=== PATIENT | male | born 1995 | race Caucasian/White ===

== ENCOUNTER 2016-05-26 21:38 | Emergency (ER) | payer OTHER ==
[2016-05-26 21:52] VITALS: BP 129/75; PULSE 79; TEMP 98.2; BMI 32.4
--- NOTE | 2016-05-26 22:16 | PDOC ---
History of Present Illness - General Chief Complaint: Respiratory Stated Complaint: HURTS WHEN BREATHING/CHEST TIGHT Time Seen by Provider: 05/26/16 22:09 History Source: Patient - History of Present Illness Timing/Duration: reports: other Associated Symptoms: reports: chest pain/soreness, cough. denies: fever/chills , nasal congestion, nasal drainage, shortness of breath, sore throat, wheezing Past History - Past Medical History Allergies/Adverse Reactions: Allergies Allergy/AdvReac Type Severity Reaction Status Date / Time No Known Allergies Allergy Verified 05/26/16 21:47 Home Medications: Ambulatory Orders NK [No Known Home Medication] 05/26/16 Other medical history: denies - Immunization History Immunization Up to Date: Yes - Psycho/Social/Smoking Cessation Hx Anxiety: No Suicidal Ideation: No Smoking Status: No Smoking History: Never smoked Have you smoked in the past 12 months: No Number of Cigarettes Smoked Daily: 0 Hx Alcohol Use: Yes (TWICE A WEEK) Drug/Substance Use Hx: No Substance Use Type: None Respiratory Specific PMHX - Complaint Specific PMHX Angina: No Review of Systems - Review of Systems Constitutional: No: Chills, Fever Respiratory: Yes: Cough. No: Shortness of Breath, Wheezing *Physical Exam - Vital Signs Last Vital Signs Temp Pulse Resp BP Pulse Ox 98.2 F 79 18 129/75 98 05/26/16 21:47 05/26/16 21:47 05/26/16 21:47 05/26/16 21:47 05/26/16 21:47 - Physical Exam General Appearance: Yes: Appropriately Dressed. No: Apparent Distress HEENT: positive: Normal Voice Neck: positive: Supple. negative: Lymphadenopathy (R), Lymphadenopathy (L) Respiratory/Chest: positive: Lungs Clear, Normal Breath Sounds. negative: Respiratory Distress Cardiovascular: positive: Regular Rate, S1, S2 Integumentary: positive: Dry, Warm Neurologic: positive: Fully Oriented, Alert, Normal Mood/Affect Medical Decision Making - Medical Decision Making 05/26/16 22:15 20-year-old male, no significant history, non-smoker, presenting with non- productive cough with pruritic chest pain x several days. No hemoptysis, shortness of breath, wheezing, fever or chills. Patient well-appearing and stable in ED with clear chest lungs. Most likely viral. DC with symptomatic treatment. *DC/Admit/Observation/Transfer Diagnosis at time of Disposition: URI (upper respiratory infection) Qualifiers: URI type: unspecified viral URI Qualified Code(s): J06.9 - Acute upper respiratory infection, unspecified; B97.89 - Other viral agents as the cause of diseases classified elsewhere - Discharge Dispostion Disposition: HOME Condition at time of disposition: Good - Patient Instructions Printed Discharge Instructions: DI for Viral Upper Respiratory Infection -- Adult
== END 2016-05-26 22:21 | disposition home or self-care (01) ==
LOC: JERFT 21:38 → JER 21:38 → JERFT 22:21
DX: J06.9 Acute upper respiratory infection, unspecified (principal); B97.89 Other viral agents as the cause of diseases classified elsewhere
CPT/HCPCS: 99281-25

== ENCOUNTER 2016-07-09 18:51 | Emergency (ER) | payer OTHER ==
--- NOTE | 2016-07-09 18:59 | PDOC ---
Rapid Medical Evaluation Time Seen by Provider: 07/09/16 18:57 Medical Evaluation: Allergies Allergy/AdvReac Type Severity Reaction Status Date / Time No Known Allergies Allergy Verified 05/26/16 21:47 07/09/16 18:57 20 yo M presents c/o cough x2-3 months. Denies cp, sob. No fever. cxr ordered
[2016-07-09 19:00] VITALS: BP 135/68; PULSE 100; TEMP 98.4; BMI 32.5
--- NOTE | 2016-07-09 19:38 | PDOC ---
History of Present Illness - General Chief Complaint: Cold Symptoms Stated Complaint: RESPIRATORY Time Seen by Provider: 07/09/16 18:57 History Source: Patient Exam Limitations: No Limitations - History of Present Illness Initial Comments: 07/09/16 19:38 CHIEF COMPLAINT: Cough HISTORY OF PRESENT ILLNESS: This is an otherwise healthy 20 year old male who presents for evaluation of 3 months of cough. He reports the cough is nagging, non-productive, and seems to be worse at night and with laying flat. He denies fevers/chills, weight loss, night sweats, and hemoptysis. He occasionally feels short of breath when coughing. His PCP has prescribed him several medications over the past few months (he is unable to recall which ones) with no effect. Vital signs on arrival are notable for pulse of 100. REVIEW OF SYSTEMS: GENERAL/CONSTITUTIONAL: No fever or chills. No weakness. No weight change. HEAD, EYES, EARS, NOSE AND THROAT: No change in vision. No ear pain or discharge. No sore throat. CARDIOVASCULAR: No chest pain or palpitations. RESPIRATORY: See HPI. GASTROINTESTINAL: No nausea, vomiting, diarrhea or constipation. GENITOURINARY: No dysuria, frequency, or change in urination. MUSCULOSKELETAL: No joint or muscle swelling or pain. No neck or back pain. SKIN: No rash or easy bruising. NEUROLOGIC: No headache, vertigo, loss of consciousness, or loss of sensation. PSYCHIATRIC: No depression or anxiety. ENDOCRINE: No increased thirst. No abnormal weight change. HEMATOLOGIC/LYMPHATIC: No anemia, easy bleeding, or history of blood clots. ALLERGIC/IMMUNOLOGIC: No hives or skin allergy. No latex allergy. PHYSICAL EXAM: GENERAL: The patient is awake, alert, and fully oriented, in no acute distress. HEAD: Normal with no signs of trauma. ENT: Tonsils 2+ and erythematous. Pupils equal, round and reactive to light, extraocular movements intact, sclera anicteric, conjunctiva clear. Neck supple. LUNGS: Clear to auscultation bilaterally. Normal excursion. No respiratory distress or use of accessory muscles. CV: RRR, S1/S2, no MRG. Cap refill < 2 sec. ABDOMEN: Soft, non-distended, non-tender. EXTREMITIES: Normal range of motion, no edema. NEUROLOGICAL: Normal speech, normal gait. CN II-XII grossly intact. PSYCH: Normal mood, normal affect. SKIN: Warm, dry, normal turgor, no rashes or lesions noted. Past History - Past Medical History Allergies/Adverse Reactions: Allergies Allergy/AdvReac Type Severity Reaction Status Date / Time No Known Allergies Allergy Verified 07/09/16 18:59 Home Medications: Ambulatory Orders Azithromycin [Zithromax 250mg Tablets -] 250 mg PO UTDICT #6 tab 07/09/16 Prednisone [Deltasone -] 40 mg PO DAILY #10 tablet 07/09/16 Promethazine/Phenyleph/Codeine [Phenergan VC+Codeine Syrup] 5 ml PO QID PRN #50 ml MDD 20 07/09/16 - Immunization History Immunization Up to Date: Yes - Psycho/Social/Smoking Cessation Hx Anxiety: No Suicidal Ideation: No Smoking Status: No Smoking History: Never smoked Have you smoked in the past 12 months: No Number of Cigarettes Smoked Daily: 0 Information on smoking cessation initiated: No Hx Alcohol Use: Yes (TWICE A WEEK) Drug/Substance Use Hx: No Substance Use Type: None *Physical Exam - Vital Signs Last Vital Signs Temp Pulse Resp BP Pulse Ox 98.4 F 100 H 18 135/68 98 07/09/16 18:57 07/09/16 18:57 07/09/16 18:57 07/09/16 18:57 07/09/16 18:57 Medical Decision Making - Medical Decision Making 07/09/16 20:30 A/P: 20 year old male with 3 months of cough. -Mild tonsillar swelling, erythema - rapid strep is negative -CXR wet read: no infiltrate -Trial of prednisone, azithromycin, Phergan VC -Pulmonology referral *DC/Admit/Observation/Transfer Diagnosis at time of Disposition: Cough - Discharge Dispostion Disposition: HOME Condition at time of disposition: Stable Admit: No - Prescriptions Prescriptions: Prednisone [Deltasone -] 40 mg PO DAILY #10 tablet Promethazine/Phenyleph/Codeine [Phenergan VC+Codeine Syrup] 5 ml PO QID PRN #50 ml MDD 20 PRN Reason: Cough Azithromycin [Zithromax 250mg Tablets -] 250 mg PO UTDICT #6 tab - Referrals Referrals: Akhil Jamil MD [Staff Physician] - 1 week (Pulmonlogy) - Patient Instructions Printed Discharge Instructions: DI for Cough -- Adult Additional Instructions: You were seen today for a cough that has lasted for several months. Your chest xray is normal. Take prednisone, azithromycin, and cough syrup as prescribed for bronchitis. Follow up with the head of product (referral enclosed) for pulmonary function testing and further evaluation. Return here for difficulty breathing or any other concerning symptoms.
== END 2016-07-09 20:51 | disposition home or self-care (01) ==
LOC: JERFT 18:51
DX: R05 Cough (principal)
CPT/HCPCS: 71020-TC; 87070; 87430; 99281-25

== ENCOUNTER 2016-08-30 16:18 | Emergency (ER) | payer OTHER ==
[2016-08-30 16:24] VITALS: BP 125/86; PULSE 81; TEMP 98.5; BMI 33.5
--- NOTE | 2016-08-30 17:03 | PDOC ---
History of Present Illness - General Chief Complaint: Respiratory Stated Complaint: BURNING SENSATION TO CHEST/BODY SHAKING Time Seen by Provider: 08/30/16 16:47 History Source: Patient Exam Limitations: No Limitations - History of Present Illness Initial Comments: 08/30/16 16:58 20-year-old male presents to the ED with feeling generalized uneasiness, burning in his epigastric area associated with jitteriness upon awakening this morning. Patient states was out last night where he consumed alcohol, tobacco, and marijuana that he normally does not use. Patient states is dealing with girls stress and decided to go out and also has not been eating well over the past week but denies dehydration. Patient currently denies suicidal or homicidal ideation and denies psychiatric history. Timing/Duration: changing over time Severity: mild Associated Symptoms: reports: other Past History - Past Medical History Allergies/Adverse Reactions: Allergies Allergy/AdvReac Type Severity Reaction Status Date / Time No Known Allergies Allergy Verified 08/30/16 16:23 Home Medications: Ambulatory Orders Azithromycin [Zithromax 250mg Tablets -] 250 mg PO UTDICT #6 tab 07/09/16 Prednisone [Deltasone -] 40 mg PO DAILY #10 tablet 07/09/16 Promethazine/Phenyleph/Codeine [Phenergan VC+Codeine Syrup] 5 ml PO QID PRN #50 ml MDD 20 07/09/16 Other medical history: denies - Immunization History Td Vaccination: Yes Immunization Up to Date: Yes - Psycho/Social/Smoking Cessation Hx Anxiety: No Suicidal Ideation: No Smoking Status: No Smoking History: Never smoked Have you smoked in the past 12 months: No Number of Cigarettes Smoked Daily: 0 Information on smoking cessation initiated: Yes 'Breaking Loose' booklet given: 08/30/16 Hx Alcohol Use: Yes (occasional) Drug/Substance Use Hx: Yes (marijuana) Substance Use Type: Alcohol, Marijuana Patient Lives Alone: No Lives with/in: parents Review of Systems - Review of Systems Able to Perform ROS?: Yes Constitutional: Yes: Loss of Appetite HEENTM: No: Symptoms Reported Respiratory: No: Symptoms reported Cardiac (ROS): Yes: Chest Tightness ABD/GI: Yes: Poor Appetite, Indigestion. No: Poor Fluid Intake Integumentary: No: Symptoms Reported Psychiatric: Yes: Anxiety, Stressors, Change in Appetite *Physical Exam - Vital Signs Last Vital Signs Temp Pulse Resp BP Pulse Ox 98.5 F 81 18 125/86 99 08/30/16 16:21 08/30/16 16:21 08/30/16 16:21 08/30/16 16:21 08/30/16 16:21 - Physical Exam General Appearance: Yes: Nourished, Appropriately Dressed. No: Apparent Distress HEENT: positive: EOMI, GORDO, TMs Normal, Pharynx Normal. negative: Pale Conjunctivae Neck: positive: Normal Thyroid, Supple Respiratory/Chest: positive: Lungs Clear, Normal Breath Sounds. negative: Respiratory Distress, Accessory Muscle Use Cardiovascular: positive: Regular Rhythm, Regular Rate. negative: Murmur Gastrointestinal/Abdominal: positive: Soft. negative: Tenderness Extremity: positive: Normal Capillary Refill Integumentary: positive: Normal Color, Warm, Moist Neurologic: positive: Normal Mood/Affect (good eye contact and normal body language), Motor Strength 5/5 Heart Score/ECG Review - History History: Highly suspicious - ECG Intrepretation Rhythm: Regular Rhythm (rate 87 and normal sinus) Medical Decision Making - Medical Decision Making 08/30/16 17:02 Patient with jitteriness, indigestion after consuming alcohol hookah, and marijuana. Patient with normal EKG and normal clinical exam. Sprain to patient to eat well- balanced meals and to avoid the above. *DC/Admit/Observation/Transfer Diagnosis at time of Disposition: Drug side effects - Discharge Dispostion Disposition: HOME Condition at time of disposition: Good - Referrals Referrals: Herrera Goldsmith MD [Primary Care Provider] - - Patient Instructions Printed Discharge Instructions: Indigestion Additional Instructions: I recommend soft bland food for the next 24 hours. Avoid caffeinated acidic or greasy food.
--- NOTE | 2016-09-03 08:23 | EKG ---
Test Reason : Blood Pressure : / mmHG Vent. Rate : 087 BPM Atrial Rate : 087 BPM P-R Int : 132 ms QRS Dur : 082 ms QT Int : 336 ms P-R-T Axes : 047 039 -07 degrees QTc Int : 404 ms NORMAL SINUS RHYTHM NONSPECIFIC T WAVE ABNORMALITY ABNORMAL ECG WHEN COMPARED WITH ECG OF 03-DEC-2011 01:09, NO SIGNIFICANT CHANGE WAS FOUND Confirmed by GILBERTO ZAMORA MD ([id number]) on 09/03/2016 8:23:08 AM Referred By: Confirmed By:GILBERTO ZAMORA MD
== END 2016-08-30 17:07 | disposition home or self-care (01) ==
LOC: JERFT 16:18
DX: T40.7X1A Poisoning by cannabis (derivatives), accidental (unintentional), initial encounter (principal); T51.8X1A Toxic effect of other alcohols, accidental (unintentional), initial encounter; G25.1 Drug-induced tremor; Y92.89 Other specified places as the place of occurrence of the external cause
CPT/HCPCS: 93005; 93010; 99281-25

== ENCOUNTER 2017-04-18 00:09 | Emergency (ER) | payer OTHER ==
[2017-04-18 00:32] VITALS: BP 120/89; PULSE 94; TEMP 98.1; BMI 34.3
--- NOTE | 2017-04-18 00:37 | PDOC ---
History of Present Illness - General Chief Complaint: Injury Stated Complaint: FINGER INJURY Time Seen by Provider: 04/18/17 00:29 History Source: Patient Exam Limitations: No Limitations - History of Present Illness Initial Comments: 04/18/17 00:52 21-year-old male who is right hand dominant presents to the emergency department complaining of pain to the distal right index finger after slamming his car door into his finger. Pain is described as 6/10 throbbing constant discomfort. The pain is alleviated minimally with ice and exacerbated on touch. Patient denies any other injuries/complaints. Occurred: reports: just prior to arrival Past History - Past Medical History Allergies/Adverse Reactions: Allergies Allergy/AdvReac Type Severity Reaction Status Date / Time No Known Allergies Allergy Verified 04/18/17 00:28 Home Medications: Ambulatory Orders Azithromycin [Zithromax 250mg Tablets -] 250 mg PO UTDICT #6 tab 07/09/16 Prednisone [Deltasone -] 40 mg PO DAILY #10 tablet 07/09/16 Promethazine/Phenyleph/Codeine [Phenergan VC+Codeine Syrup] 5 ml PO QID PRN #50 ml MDD 20 07/09/16 COPD: No Other medical history: denies - Immunization History Td Vaccination: Yes Immunization Up to Date: Yes - Suicide/Smoking/Psychosocial Hx Smoking Status: No Smoking History: Never smoked Have you smoked in the past 12 months: No Number of Cigarettes Smoked Daily: 0 'Breaking Loose' booklet given: 08/30/16 Hx Alcohol Use: No Drug/Substance Use Hx: No Substance Use Type: Alcohol, Marijuana Review of Systems - Review of Systems Able to Perform ROS?: Yes Comments:: 04/18/17 00:53 Right 2nd digit +pain/throbbing neg numbness/tingling sensation Is the patient limited Ivorian proficient: No *Physical Exam - Vital Signs Last Vital Signs Temp Pulse Resp BP Pulse Ox 98.1 F 94 H 18 120/89 99 04/18/17 00:25 04/18/17 00:25 04/18/17 00:25 04/18/17 00:25 04/18/17 00:25 - Physical Exam Comments: 04/18/17 00:53 Right 2nd digit F.R.O.M>/pain 2 point sensation intact cap refill <2sec 40% prox subungual hematoma ED Treatment Course - RADIOLOGY Radiograph Interpretation: 04/18/17 00:56 Xray right 2nd digit; neg fx/dislocations Progress Note - Progress Note Progress Note: Right 2nd digit nail; trephination *DC/Admit/Observation/Transfer Diagnosis at time of Disposition: Hematoma, subungual, finger, right Qualifiers: Encounter type: initial encounter Qualified Code(s): S60.10XA - Contusion of unspecified finger with damage to nail, initial encounter - Discharge Dispostion Disposition: HOME Condition at time of disposition: Stable Admit: No - Referrals Referrals: Herrera Goldsmith MD [Primary Care Provider] - - Patient Instructions Printed Discharge Instructions: DI for Subungual Hematoma Additional Instructions: Ice; 20 mins on alternating with 20 mins off for 48 hours while awake Tylenol or Motrin as needed for pain Follow up with your physician/ or Dr. Eleno Serrano REturn to the ER for severe/persistent/worsening symptoms - Post Discharge Activity
[2017-04-18] MEDS ORDERED: LIDOCAINE HCL 1%, 10 MG/ML (20ML VIAL) ONE (01:55)
== END 2017-04-18 02:45 | disposition home or self-care (01) ==
LOC: JER 00:09
PROC: 0H9QXZZ Drainage of Finger Nail, External Approach (ICD-10-PCS; principal; 2017-04-18)
DX: S60.121A Contusion of right index finger with damage to nail, initial encounter (principal); V48.4XXA Person boarding or alighting a car injured in noncollision transport accident, initial encounter; Y92.410 Unspecified street and highway as the place of occurrence of the external cause; Y93.89 Activity, other specified; Y99.8 Other external cause status
CPT/HCPCS: 13132; 73140-TC-RT; 99281-25

== ENCOUNTER 2017-06-08 16:41 | Emergency (ER) | payer OTHER ==
[2017-06-08 16:51] VITALS: BP 116/70; PULSE 109; TEMP 99.1; BMI 36.8
--- NOTE | 2017-06-08 16:54 | PDOC ---
Rapid Medical Evaluation Chief Complaint: Cold Symptoms Time Seen by Provider: 06/08/17 16:50 Medical Evaluation: Allergies Allergy/AdvReac Type Severity Reaction Status Date / Time No Known Allergies Allergy Verified 06/08/17 16:48 06/08/17 16:50 The patient presents with a chief complaint of: [Dry cough since , was seen in urgent care twice. Was given medication, and cough persists, was told to follow up with pulmonary but cannot obtain appointment until mid June. Xray demonstrated" scars on lungs" ] I have performed a brief in-person evaluation of this patient. Pertinent physical exam findings: Temp 99.1, bronchospasm, lungs clear, abdomen is soft, nontender, obese. I have ordered the following: [Chest Xray] The patient will proceed to the ED for further evaluation. Discharge Disposition - Diagnosis Cough - Referrals - Patient Instructions - Post Discharge Activity
--- NOTE | 2017-06-08 17:51 | PDOC ---
History of Present Illness - General Chief Complaint: Cold Symptoms Stated Complaint: COUGHING Time Seen by Provider: 06/08/17 16:50 History Source: Patient - History of Present Illness Timing/Duration: reports: other Associated Symptoms: reports: cough. denies: earache, fever/chills, muscle aches, nasal congestion, nasal drainage, shortness of breath, sore throat, wheezing Past History - Past Medical History Allergies/Adverse Reactions: Allergies Allergy/AdvReac Type Severity Reaction Status Date / Time No Known Allergies Allergy Verified 06/08/17 16:48 Home Medications: Ambulatory Orders NK [No Known Home Medication] 06/08/17 COPD: No - Immunization History Td Vaccination: Yes Immunization Up to Date: Yes - Suicide/Smoking/Psychosocial Hx Smoking Status: No Smoking History: Never smoked Have you smoked in the past 12 months: No Number of Cigarettes Smoked Daily: 0 Information on smoking cessation initiated: No 'Breaking Loose' booklet given: 08/30/16 Hx Alcohol Use: No Drug/Substance Use Hx: No Substance Use Type: Alcohol, Marijuana Respiratory Specific PMHX - Complaint Specific PMHX Angina: No Review of Systems - Review of Systems Constitutional: No: Chills, Fever, Unintentional Wgt. Loss Respiratory: Yes: Cough. No: Shortness of Breath, Hemoptysis Cardiac (ROS): No: Chest Pain *Physical Exam - Vital Signs Last Vital Signs Temp Pulse Resp BP Pulse Ox 99.1 F 109 H 18 116/70 100 06/08/17 16:49 06/08/17 16:49 06/08/17 16:49 06/08/17 16:49 06/08/17 16:49 - Physical Exam General Appearance: Yes: Appropriately Dressed. No: Apparent Distress HEENT: positive: Normal ENT Inspection, Normal Voice. negative: Scleral Icterus (R), Scleral Icterus (L) Neck: negative: Lymphadenopathy (R), Lymphadenopathy (L) Respiratory/Chest: positive: Lungs Clear, Normal Breath Sounds. negative: Respiratory Distress Cardiovascular: positive: Regular Rate, S1, S2 Extremity: positive: Normal Inspection Integumentary: positive: Dry, Warm Neurologic: positive: Fully Oriented, Alert, Normal Mood/Affect Medical Decision Making - Medical Decision Making 06/08/17 18:35 21-year-old male, no significant history, nonsmoker, here with a mostly nonproductive cough 2 months. Now complaining of pleuritic chest pain. No shortness of breath, hemoptysis, fever, chills or weight loss. Seen at urgent care several weeks ago and prescribed antibiotics and steroids with no relief per patient. States he had a chest x-ray done that showed scarring but no acute pathology. Here because coughing persist despite taking [id number] medication. Patient well-appearing w/ HR 109 at triage, improved to 88 on bedside repeat, exam unremarkable otherwise. Chest x-ray negative for acute pathology. Unclear source of cough as nonsmoker, no history of GERD and not on medications that is known to cause cough. Possible postnasal drip and will have patient do a trial of antihistamine/decongestants. States he has an upcoming appointment with pulmonary and will follow-up *DC/Admit/Observation/Transfer Diagnosis at time of Disposition: Cough - Discharge Dispostion Disposition: HOME Condition at time of disposition: Good - Referrals - Patient Instructions Printed Discharge Instructions: Cough Additional Instructions: The cause of your cough is unclear at this time. Please follow-up with your pulmonary doctor - Post Discharge Activity
== END 2017-06-08 18:39 | disposition home or self-care (01) ==
LOC: JERFT 16:41
DX: R05 Cough (principal)
CPT/HCPCS: 71046-TC; 99281-25

== ENCOUNTER 2018-05-07 01:59 | Emergency (ER) | payer SELFPAY ==
[2018-05-07 02:41] VITALS: BP 138/74; PULSE 88; TEMP 97.9; BMI 32.9
--- NOTE | 2018-05-07 02:56 | PDOC ---
History of Present Illness - General Chief Complaint: Wound Stated Complaint: SWELLING OF FINGER Time Seen by Provider: 05/07/18 02:15 History Source: Patient - History of Present Illness Initial Comments: 05/07/18 02:51 22 year old male with right thumb nail swelling and pain x 1 day has swelling and redness to the distal tip of the finger. denies fever/ chill no streaking noted Timing/Duration: reports: just prior to arrival Past History - Past Medical History Allergies/Adverse Reactions: Allergies Allergy/AdvReac Type Severity Reaction Status Date / Time No Known Allergies Allergy Verified 05/07/18 02:39 Home Medications: Ambulatory Orders Cephalexin Monohydrate [Keflex -] 250 mg PO Q8H #21 capsule 05/07/18 COPD: No - Immunization History Td Vaccination: Yes Immunization Up to Date: Yes - Suicide/Smoking/Psychosocial Hx Smoking Status: No Smoking History: Never smoked Have you smoked in the past 12 months: No Number of Cigarettes Smoked Daily: 0 Information on smoking cessation initiated: No 'Breaking Loose' booklet given: 08/30/16 Hx Alcohol Use: No Drug/Substance Use Hx: No Substance Use Type: Alcohol, Marijuana Review of Systems - Review of Systems Able to Perform ROS?: Yes Is the patient limited Lao proficient: No Constitutional: No: Symptoms Reported, See HPI, Chills, Diaphoresis, Fever, Loss of Appetite, Malaise, Night Sweats, Weakness, Weight Stable, Unintentional Wgt. Loss, Unexplained wgt Loss, Other Integumentary: Yes: Erythema (right thumb) *Physical Exam - Vital Signs Last Vital Signs Temp Pulse Resp BP Pulse Ox 97.9 F 88 18 138/74 99 05/07/18 02:05 05/07/18 02:05 05/07/18 02:05 05/07/18 02:05 05/07/18 02:05 - Physical Exam General Appearance: Yes: Appropriately Dressed Extremity: positive: Normal Capillary Refill, Other (right thumb distal tip paronychia with distal finger tip erythema) Moderate Sedation - Procedure Monitoring Vital Signs: Procedure Monitoring Vital Signs Temperature 97.9 F 05/07/18 02:05 Pulse Rate 88 05/07/18 02:05 Respiratory Rate 18 05/07/18 02:05 Blood Pressure 138/74 05/07/18 02:05 O2 Sat by Pulse Oximetry (%) 99 05/07/18 02:05 *DC/Admit/Observation/Transfer Diagnosis at time of Disposition: Paronychia of finger of right hand - Discharge Dispostion Disposition: HOME - Prescriptions Prescriptions: Cephalexin Monohydrate [Keflex -] 250 mg PO Q8H #21 capsule - Referrals Referrals: Elise Goldsmith MD [Primary Care Provider] - - Patient Instructions Printed Discharge Instructions: DI for Paronychia Additional Instructions: soak finger in warm salty water take cephalexin as ordered. follow up with your doctor as soon as possible. Additional Instructions: * Please call your personal physician to report your Emergency Department visit and to report your progress, if any. * If there is no improvement in symptoms in 2 days call your physician. * Return to the Emergency Department for any worsening symptoms. - Post Discharge Activity
== END 2018-05-07 03:02 | disposition home or self-care (01) ==
LOC: JER 01:59
DX: L03.011 Cellulitis of right finger (principal)
CPT/HCPCS: 99281-25

== ENCOUNTER 2018-09-10 23:47 | Emergency (ER) | payer OTHER ==
--- NOTE | 2018-09-10 23:51 | PDOC ---
History of Present Illness - General Chief Complaint: Chest Pain Stated Complaint: CHEST PAIN Time Seen by Provider: 09/10/18 23:49 - History of Present Illness Initial Comments: 09/11/18 00:22 The patient is a 22 year old male, with no significant PMH of who presents to the emergency department with few hour history of left sided chest pain. 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 Denies trauma or overuse. Has had intermittent worsening of pain with movement of left arm. He denies shortness of breath,nausea, diaphoresis. He has had chronic cough for several months but no recent worsening of the cough. No fever/chills No HTN/DM/HLD/ FH of cardiac disease No recent surgery/prolonged inactivity/malignancy/hx of thromboembolic disorder The patient denies headache or dizziness. Denies fever, chills, nausea, vomit, diarrhea and constipation. Denies dysuria, frequency, urgency and hematuria. Allergies: NKA Past surgical history:none Social history: smokes hookah occasionally(not daily); denies alcohol/ other drug use PCP:Rupal Past History - Past Medical History Allergies/Adverse Reactions: Allergies Allergy/AdvReac Type Severity Reaction Status Date / Time No Known Allergies Allergy Verified 05/07/18 02:39 Home Medications: Ambulatory Orders Cephalexin Monohydrate [Keflex -] 250 mg PO Q8H #21 capsule 05/07/18 COPD: No - Immunization History Td Vaccination: Yes Immunization Up to Date: Yes - Suicide/Smoking/Psychosocial Hx Smoking Status: No Smoking History: Never smoked Have you smoked in the past 12 months: No Number of Cigarettes Smoked Daily: 0 'Breaking Loose' booklet given: 08/30/16 Hx Alcohol Use: No Drug/Substance Use Hx: No Substance Use Type: Alcohol, Marijuana Cardiac Specific PMH - Complaint Specific PMHX Abdominal Aortic Aneurysm: No Angina: No Cardiac Arrhythmia: No Cardiac Stent: No GERD: No Pacemaker: No Review of Systems - Review of Systems Able to Perform ROS?: Yes Comments:: GENERAL/CONSTITUTIONAL: No fever or chills. No weakness. HEAD, EYES, EARS, NOSE AND THROAT: No change in vision. No ear pain or discharge. No sore throat. RESPIRATORY: No wheezing or hemoptysis. GASTROINTESTINAL: No nausea, vomiting, diarrhea or constipation. GENITOURINARY: No dysuria, frequency, or change in urination. MUSCULOSKELETAL: No joint or muscle swelling or pain. No neck or back pain. SKIN: No rash NEUROLOGIC: No headache, vertigo, loss of consciousness, or change in strength/ sensation. ENDOCRINE: No increased thirst. No abnormal weight change. HEMATOLOGIC/LYMPHATIC: No anemia, easy bleeding, or history of blood clots. ALLERGIC/IMMUNOLOGIC: No hives or skin allergy. *Physical Exam - Vital Signs Last Vital Signs Temp Pulse Resp BP Pulse Ox 98.2 F 90 16 111/63 96 09/10/18 23:48 09/10/18 23:48 09/10/18 23:48 09/10/18 23:48 09/10/18 23:48 - Physical Exam Comments: GENERAL: Awake, alert, and fully oriented, in no acute distress HEAD: No signs of trauma EYES: PERRLA, EOMI, sclera anicteric, conjunctiva clear ENT: Auricles normal inspection, hearing grossly normal, nares patent, oropharynx clear without exudates. Moist mucosa NECK: Normal ROM, supple, no lymphadenopathy, JVD, or masses LUNGS: Breath sounds equal, clear to auscultation bilaterally. No wheezes, and no crackles CHEST WALL: mild tenderness to palpation LLSB ribs 3-5; no other tenderness, crepitus, stepoffs HEART: Regular rate and rhythm, normal S1 and S2, no murmurs, rubs or gallops ABDOMEN: Soft, nontender, normoactive bowel sounds. No guarding, no rebound. No masses EXTREMITIES: Normal range of motion, no edema. No clubbing or cyanosis. No cords, erythema, or tenderness NEUROLOGICAL: Cranial nerves II through XII grossly intact. Normal speech, normal gait SKIN: Warm, Dry, normal turgor, no rashes or lesions noted. 12 lead EKG performed and interpreted by me: NSR at 79/min,shallow t wave inversions II,III,AvF/V5,V6, no other waveform abnormalities seen; axis and intervals are normal. No evidence of cardiac arrythmias. Unchanged from 12 lead EKG dated 08/30/16 ED Treatment Course - LABORATORY CBC & Chemistry Diagram: 09/11/18 00:05 09/11/18 00:05 - ADDITIONAL ORDERS Additional order review: Laboratory Results 09/11/18 00:05 Sodium 137 Potassium 3.9 Chloride 104 Carbon Dioxide 29 Anion Gap 5 L BUN 13 Creatinine 1.0 Creat Clearance w eGFR 92.60 Random Glucose 76 Calcium 9.0 Total Bilirubin 0.4 AST 18 ALT 31 Alkaline Phosphatase 87 Creatine Kinase 143 Troponin I < 0.02 Total Protein 7.6 Albumin 3.7 09/11/18 00:05 RBC 4.67 MCV 94.1 MCHC 33.2 RDW 12.3 MPV 8.3 Neutrophils % 66.8 D Lymphocytes % 24.1 D Monocytes % 7.9 Eosinophils % 0.8 D Basophils % 0.4 - Medications Given in the ED: ED Medications Discontinued Medications Generic Name Dose Route Start Last Admin Trade Name Shanq PRN Reason Stop Dose Admin Ibuprofen 600 mg 09/11/18 01:30 09/11/18 01:33 Motrin - PO 09/11/18 01:31 600 mg ONCE ONE Administration Medical Decision Making - Medical Decision Making Laboratory evaluation of CBC, chemistry profile and troponin notable only for WBC of 12,100. Values, including troponin otherwise normal. Clinical presentation consistent with atypical chest pain, likely of chest wall strain etiology.Motrin 600mg given to the patient. He has been advised to followup with Dr Goldsmith when office is open on Thursday, September 13 and avoid strenuous upper body activity prior to that. He should return to the ER if he has persistent pain or experiences shortness of breath *DC/Admit/Observation/Transfer Diagnosis at time of Disposition: Atypical chest pain - Discharge Dispostion Disposition: HOME Condition at time of disposition: Stable - Referrals Referrals: Elise Goldsmith MD [Primary Care Provider] - 3 days - Patient Instructions Printed Discharge Instructions: DI for Atypical Chest Pain Additional Instructions: rest, avoid strenuous upper body activity for next 3-4 days Motrin/Tylenol as needed for pain followup with Dr Goldsmith on Thursday, 09/13 as discussed return to ER as needed for severe, persistent pain or shortness of breath - Post Discharge Activity
[2018-09-10 23:54] VITALS: BP 111/63; PULSE 90; TEMP 98.2; BMI 39.4
[2018-09-11 00:56] LABS: BASO % 0.4 % (0-2.0); EOS % 0.8 % (0-4.5); HEMATOCRIT 43.9 % (35.4-49); HEMOGLOBIN 14.6 GM/dL (11.7-16.9); LYMPH % 24.1 % (8-40); MCH 31.2 pg (25.7-33.7); MCHC 33.2 g/dl (32.0-35.9); MEAN CELL VOLUME 94.1 fl (80-96); MEAN PLT VOLUME 8.3 fl (7.5-11.1); MONO % 7.9 % (3.8-10.2); NEUT % 66.8 % (42.8-82.8); PLATELET COUNT 354 K/MM3 (134-434); RBC 4.67 M/mm3 (4.00-5.60); RDW 12.3 % (11.9-15.9); WHITE BLOOD COUNT 12.1 K/mm3 (4.0-10.0)
[2018-09-11 01:26] LABS: ALBUMIN 3.7 g/dl (3.4-5.0); ALK PHOS 87 U/L (45-117); ANION GAP 5 MMOL/L (8-16); BILIRUBIN,TOTAL 0.4 mg/dL (0.2-1); BLOOD UREA NITROGEN 13 mg/dL (7-18); CHLORIDE 104 mmol/L (98-107); CO2 29 mmol/L (21-32); GLUCOSE,RANDOM 76 mg/dL (74-106); POTASSIUM 3.9 mmol/L (3.5-5.1); SGOT/AST 18 U/L (15-37); SGPT/ALT 31 U/L (13-61); SODIUM 137 mmol/L (136-145); TOT PROT 7.6 g/dl (6.4-8.2)
[2018-09-11] MEDS ORDERED: IBUPROFEN 600 MG TABLET (FP) PO ONE ×2 (01:30→01:32)
--- NOTE | 2018-09-11 08:25 | EKG ---
Test Reason : Blood Pressure : / mmHG Vent. Rate : 079 BPM Atrial Rate : 079 BPM P-R Int : 140 ms QRS Dur : 092 ms QT Int : 362 ms P-R-T Axes : 022 033 -32 degrees QTc Int : 415 ms NORMAL SINUS RHYTHM NONSPECIFIC T WAVE ABNORMALITY ABNORMAL ECG WHEN COMPARED WITH ECG OF 30-AUG-2016 16:26, NO SIGNIFICANT CHANGE WAS FOUND Confirmed by SEVERO SUAREZ MD ([id number]) on 09/11/2018 8:25:22 AM Referred By: MD MALIK Confirmed By:SEVERO SUAREZ MD
== END 2018-09-11 01:36 | disposition home or self-care (01) ==
LOC: SUPCPDRO 23:47 → FER 23:47
DX: R07.89 Other chest pain (principal)
CPT/HCPCS: 36415; 80053; 82550; 84484; 85025; 93005; 99281-25

== ENCOUNTER 2023-12-22 10:38 | Emergency (ER) | payer OTHER ==
[2023-12-22 10:48] VITALS: BP 104/61; PULSE 81; RESP 18; TEMP 98.7; BMI 37.9
[2023-12-22 11:47] LABS: EPI CELLS 1 /uL (0-25.1); HYALINE CASTS 0 /uL (0-3.1); URINE APPEARANCE CLEAR; URINE BACTERIA 8 /uL (0-1359); URINE BILIRUBIN NEGATIVE (NEGATIVE); URINE COLOR YELLOW; URINE GLUCOSE (UA) NEGATIVE (NEGATIVE); URINE KETONE TRACE (NEGATIVE); URINE LEUK ESTERASE NEGATIVE (NEGATIVE); URINE NITRITE NEGATIVE (NEGATIVE); URINE PROTEIN NEGATIVE (NEGATIVE); URINE RBC 13 /uL (0-23.9); URINE UROBILINOGEN 0.2 mg/dL (0.2-1.0); URINE WBC 3 /uL (0-25.8)
[2023-12-22 11:47] LABS: BASO % 0.4 % (0-2.0); EOS % 0.5 % (0-4.5); HEMATOCRIT 41.5 % (35.4-49); HEMOGLOBIN 14.6 GM/dL (11.7-16.9); LYMPH % 17.1 % (8-40); MCH 32.1 pg (25.7-33.7); MCHC 35.3 g/dl (32.0-35.9); MEAN CELL VOLUME 90.9 fl (80-96); MEAN PLT VOLUME 7.9 fl (7.5-11.1); MONO % 6.6 % (3.8-10.2); NEUT % 75.4 % (42.8-82.8); PLATELET COUNT 387 10^3/uL (134-434); RBC 4.56 M/mm3 (4.00-5.60); RDW 12.5 % (11.9-15.9); WHITE BLOOD COUNT 11.4 K/mm3 (4.0-10.0)
[2023-12-22 12:03] LABS: POTASSIUM 3.7 mmol/L (3.5-5.1)
[2023-12-22 12:04] LABS: CALCIUM 9.3 mg/dL (8.5-10.1)
[2023-12-22 12:05] LABS: ALBUMIN 3.8 g/dl (3.4-5.0); BLOOD UREA NITROGEN 10.1 mg/dL (7-18)
[2023-12-22 12:08] LABS: CREATININE 0.8 mg/dL (0.55-1.3)
[2023-12-22 12:10] LABS: BILIRUBIN,TOTAL 0.5 mg/dL (0.2-1); TOT PROT 7.6 g/dl (6.4-8.2)
[2023-12-22 13:25] LABS: HIV INTERPRETATION NEGATIVE (NEGATIVE)
== END 2023-12-22 13:42 | disposition home or self-care (01) ==
LOC: JER 10:38
DX: K59.01 Slow transit constipation (principal); R10.32 Left lower quadrant pain
CPT/HCPCS: 36415; 74019-TC-FY; 80053; 81003; 85025; 86803; 87389; 99284-25